=== PATIENT | male | born 1960 | race African-American/Black ===

== ENCOUNTER 2020-05-24 16:58 | Emergency (ER) | payer MEDICAID ==
[~2020-05-24] VITALS: Ht 175.3 cm; Wt 86.2 kg
[2020-05-24 17:25] VITALS: BP 151/78
--- NOTE | 2020-05-24 17:56 | NUR ---
Patient reported to the ER with c/o of right knee pain 01/17. He has hx of knee surgery several years ago but reports that everytime it gets cold, he has pain in his right knee but the pain that he feels now is not like any pain that he has felt before. Is not able to place full weight on his right leg. Visible surgical scars noted, all healed. Will be seen by the doctor for further assessment.
--- NOTE | 2020-05-24 18:03 | NUR ---
Awiting xray of knee
--- NOTE | 2020-05-24 18:03 | Diagnostic Imaging Report ---
EXAM: XR Right Knee, 3 Views CLINICAL HISTORY: PAIN TECHNIQUE: Three views of the right knee. COMPARISON: No relevant prior studies available. FINDINGS: Bones/joints: Marked tricompartment degenerative changes. No acute fracture or traumatic malalignment. Loose body seen within the joint space. Soft tissues: Unremarkable. IMPRESSION: Marked tricompartment degenerative changes.
--- NOTE | 2020-05-24 18:13 | NUR ---
ED Nurse Note: knee immobilzer placed on leg. Pt is going to be referred to orthopedic dr due to amount of arthritis in it.
[2020-05-24] MEDS ORDERED: IBUPROFEN600 M1 ORAL (18:14)
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
== END 2020-05-24 18:19 | disposition home or self-care (01) ==
LOC: EMR 17:35
DX: M17.11 Unilateral primary osteoarthritis, right knee (principal)
CPT/HCPCS: 73562; Z7502; 99284

== ENCOUNTER 2020-06-01 14:30 | Emergency (ER) | payer MEDICAID ==
[~2020-06-01 14:30] MED LIST: IBUPROFEN600 M1 ORAL
--- NOTE | 2020-06-01 14:43 | NUR ---
ED Nurse Note: Patient left without being seen.
--- NOTE | 2020-06-01 15:06 | Emergency Room Report ---
History of Present Illness General Chief Complaint: To Be Triaged Present Illness HPI Patient left without being seen. I had no interaction with this patient. Allergies: Coded Allergies: No Known Allergies (Unverified , 05/24/20) COVID-19 Screening Contact w/high risk pt: No Experienced COVID-19 symptoms?: No Medical Decision Making Diagnostic Impression: Primary Impression: Patient left before evaluation by physician ER Course Patient left without being seen. I no interaction with this patient. Disposition: LEFT W/OUT BEING SEEN Condition: Unknown Celestino Hoffmann MD Jun 01, 2020 15:06
== END 2020-06-01 14:43 | disposition left against medical advice (07) ==
LOC: EMR 14:40
DX: Z53.21 Procedure and treatment not carried out due to patient leaving prior to being seen by health care provider (principal)